=== PATIENT | male | born 1990 | race Caucasian/White ===

== ENCOUNTER 2017-12-22 09:11 | Emergency (ER) | payer MEDICAID ==
[~2017-12-22] VITALS: Ht 182.9 cm; Wt 100.2 kg
[2017-12-22] MEDS ORDERED: HYDROcodone/APAP 5/325 TABLET PO ONE (09:30)
[2017-12-22] MEDS ORDERED: HYDROcodone/APAP 5/325 TABLET ONE (09:31)
[2017-12-22 11:13] VITALS: BP 139/84
== END 2017-12-22 11:15 | disposition home or self-care (01) ==
LOC: ED 11:04
DX: L03.116 Cellulitis of left lower limb (principal); M71.162 Other infective bursitis, left knee
CPT/HCPCS: 99284

== ENCOUNTER 2017-12-22 11:22 | Outpatient (CLI) | payer MEDICAID | END 2017-12-22 11:33 | disposition home or self-care (01) | LOC: LAB 11:22 | PROVIDERS: ATTEND Internal Medicine Critical Care Medicine | DX: Z02.9 Encounter for administrative examinations, unspecified (principal) ==

== ENCOUNTER 2017-12-24 10:37 | Emergency (ER) | payer MEDICAID ==
[~2017-12-24] VITALS: Ht 182.9 cm; Wt 90.0 kg
[2017-12-24 10:43] VITALS: BP 154/83
== END 2017-12-24 11:24 | disposition home or self-care (01) ==
LOC: ED 11:20
DX: M25.561 Pain in right knee (principal); F12.10 Cannabis abuse, uncomplicated; F17.200 Nicotine dependence, unspecified, uncomplicated
CPT/HCPCS: 99281

== ENCOUNTER 2018-02-28 22:33 | Emergency (ER) | payer MEDICAID ==
[~2018-02-28] VITALS: Ht 180.3 cm; Wt 106.3 kg
[2018-02-28 22:35] VITALS: BP 133/82
--- NOTE | 2018-02-28 22:45 | NUR ---
PT HERE FOR LEFT KNEE PAIN. PT HAS PREVIOUS INFECTION TO LEFT KNEE. PT DENIES TRAUMA.
[2018-02-28] MEDS ORDERED: KETOROLAC 30 MG/1 ML ONE (22:46)
[2018-02-28] MEDS ORDERED: KETOROLAC 30 MG/1 ML IM ONE (23:00)
--- NOTE | 2018-02-28 23:54 | NUR ---
Patient/Caregiver given discharge instructions and they have confirmed that they understand the instructions. Patient ambulatory with steady gait.
== END 2018-02-28 23:55 | disposition home or self-care (01) ==
LOC: ED 23:00
DX: M70.42 Prepatellar bursitis, left knee (principal)
CPT/HCPCS: 73564; 96372; 99283; J1885

== ENCOUNTER 2020-08-23 21:06 | Emergency (ER) | payer MEDICAID ==
[~2020-08-23] VITALS: Ht 180.3 cm; Wt 102.1 kg
[2020-08-23 21:08] VITALS: BP 158/100
[2020-08-23] MEDS ORDERED: COLCHICINE 0.6 MG CAPSULE ONE (23:41)
[2020-08-24] MEDS ORDERED: INDOMETHACIN 50 MG CAPSULE PO ONE
[2020-08-24] MEDS ORDERED: COLCHICINE 0.6 MG CAPSULE PO ONE
--- NOTE | 2020-08-24 00:06 | NUR ---
PT A&OX4, NO ACUTE DISTRESS. F/U AND D/C INSTRUCTIONS GIVEN TO PT WITH PRESCRIPTIONS AND HE V/U.
== END 2020-08-24 00:08 | disposition home or self-care (01) ==
LOC: ED 23:00
DX: M10.071 Idiopathic gout, right ankle and foot (principal)
CPT/HCPCS: 36415; 84550; 99284

== ENCOUNTER 2020-10-28 04:26 | Emergency (ER) | payer MEDICAID ==
[~2020-10-28] VITALS: Ht 180.3 cm; Wt 103.6 kg
[2020-10-28 04:31] VITALS: BP 142/91
[2020-10-28] MEDS ORDERED: LIDOCAINE 1%-EPI 1:100K, 20ML ONE (05:10)
--- NOTE | 2020-10-28 06:53 | NUR ---
BRIAN RN: PULLED PATIENT BACK FOR PIT, RIGHT FOOT PAIN
== END 2020-10-28 07:04 | disposition home or self-care (01) ==
LOC: ED 06:42
DX: M10.071 Idiopathic gout, right ankle and foot (principal); M79.671 Pain in right foot; M79.672 Pain in left foot
CPT/HCPCS: 99283